=== PATIENT | male | born 1980 | race Hispanic/Latino ===

== ENCOUNTER 2017-12-22 11:58 | Emergency (ER) | payer OTHER ==
[2017-12-22 12:17] VITALS: BP 142/91; PULSE 87; RESP 18; TEMP 98.6; O2SAT 98
[2017-12-22] MEDS ORDERED: Lidocaine 5% Patch TD STA (12:43)
--- NOTE | 2017-12-22 12:51 | ED PDOC ---
Arrival/HPI - General Chief Complaint: Back Pain Time Seen by Provider: 12/22/17 12:12 Historian: Patient - History of Present Illness Narrative History of Present Illness (Text): 12/22/17 12:30 Zenon Leggett is a 37 year old male, whose past medical history includes kidney stones, who presents to the emergency department complaining of lower back pain that radiates down to bilateral hips for the past 2 weeks. Patient states that initially he experienced numbness which gradually worsened to having pain with getting out of bed this morning. Patient says that symptoms worsen with movement. Patient states that he has never had these symptoms before and they do not feel like kidney stones. Patient also indicates some ankle pain. No leg swelling or calf pain. Patient denies any abdominal pain, urinary symptoms, hematuria, or any other complaints at this time. PMD: None Time/Duration: < month (2 weeks) Symptom Onset: Gradual Symptom Course: Unchanged Activities at Onset: Light Context: Home Past Medical History - Provider Review Nursing Documentation Reviewed: Yes - Infectious Disease Hx of Infectious Diseases: None - Cardiac Hx Cardiac Disorders: No - Pulmonary Hx Respiratory Disorders: No - Neurological Hx Neurological Disorder: No - HEENT Hx HEENT Disorder: No - Renal Hx Renal Disorder: Yes Hx Kidney Stones: Yes - Endocrine/Metabolic Hx Endocrine Disorders: No - Hematological/Oncological Hx Blood Disorders: No - Integumentary Hx Dermatological Disorder: No - Musculoskeletal/Rheumatological Hx Musculoskeletal Disorders: No - Gastrointestinal Hx Gastrointestinal Disorders: No - Genitourinary/Gynecological Hx Genitourinary Disorders: No - Psychiatric Hx Psychophysiologic Disorder: No Hx Substance Use: No - Surgical History Other/Comment: kidney lithotripsy b/l - Anesthesia Hx Anesthesia: Yes Hx Anesthesia Reactions: No Family/Social History - Physician Review Nursing Documentation Reviewed: Yes Family/Social History: No Known Family HX Smoking Status: Former Smoker Hx Alcohol Use: No Hx Substance Use: No Allergies/Home Meds Allergies/Adverse Reactions: Allergies shrimp Allergy (Verified 12/22/17 12:28) ANAPHYLAXIS Review of Systems - Physician Review All systems were reviewed & negative as marked: Yes - Review of Systems Constitutional: absent: Fevers, Night Sweats Eyes: absent: Vision Changes ENT: absent: Hearing Changes Respiratory: absent: SOB, Cough Cardiovascular: absent: Chest Pain Gastrointestinal: absent: Abdominal Pain Genitourinary Male: absent: Dysuria, Frequency Musculoskeletal: Back Pain (lower back pain that radiates down to bilateral hips ). absent: Arthralgias Skin: absent: Rash, Pruritis Neurological: absent: Headache, Dizziness Endocrine: absent: Diaphoresis Hemo/Lymphatic: absent: Adenopathy Psychiatric: absent: Anxiety, Depression Physical Exam Vital Signs Reviewed: Yes Vital Signs Temp Pulse Resp BP Pulse Ox 12/22/17 12:16 98.6 F 87 18 142/91 H 98 Temperature: Afebrile Blood Pressure: Hypertensive Pulse: Regular Respiratory Rate: Normal Appearance: Positive for: Well-Appearing, Non-Toxic, Comfortable Pain Distress: None Mental Status: Positive for: Alert and Oriented X 3 - Systems Exam Head: Present: Atraumatic, Normocephalic Pupils: Present: PERRL Extroacular Muscles: Present: EOMI Conjunctiva: Present: Normal Mouth: Present: Moist Mucous Membranes Neck: Present: Normal Range of Motion Respiratory/Chest: Present: Clear to Auscultation, Good Air Exchange. No: Respiratory Distress, Accessory Muscle Use Cardiovascular: Present: Regular Rate and Rhythm, Normal S1, S2. No: Murmurs Abdomen: Present: Normal Bowel Sounds. No: Tenderness, Distention, Peritoneal Signs Back: Present: Paraspinal Tenderness (paraspinal tenderness to L3 and L4), Other (pain to right side sciatic nerve in buttocks; exacerbated by movement and leg extension ) Upper Extremity: Present: Normal Inspection. No: Cyanosis, Edema Lower Extremity: No: Tenderness (no calf tenderness), Swelling (no leg swelling) Neurological: Present: GCS=15, CN II-XII Intact, Speech Normal Skin: Present: Warm, Dry, Normal Color. No: Rashes Psychiatric: Present: Alert, Oriented x 3, Normal Insight, Normal Concentration Medical Decision Making ED Course and Treatment: 12/22/17 12:52 Impression: 37 year old male complaining of lower back pain that radiates down to bilateral hips for the past 2 weeks. Differential Diagnosis included but are not limited to: Sciatica vs. Muscle strain Plan: -- Tylenol, Lidoderm, and Toradol -- Reassess and disposition Progress Notes: Patient was instructed on some stretching exercises. He was advised to take medications as prescribed. He was told to return to the ED if he develops any urinary symptoms, inability to walk, weakness or any other concern. Clinically this does not appear like kidney stones. He will be advised to follow up with Dr. 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 - Medication Orders Current Medication Orders: Discontinued Medications Acetaminophen (Tylenol 325mg Tab) 975 mg PO STAT STA Stop: 12/22/17 12:44 Last Admin: 12/22/17 13:38 Dose: 975 mg MAR Pain/Vitals Document 12/22/17 13:38 SE (Rec: 12/22/17 13:38 SE [id number]) Pain Reassessment Is This A Pain ReAssessment? No Sleep Is patient sleeping during reassessment? No Presence of Pain Presence of Pain Yes Pain Scale Used Pain Scale Used Numeric Location Upper or Lower Lower Pain Location Body Site Back Ketorolac Tromethamine (Toradol) 60 mg IM STAT STA Stop: 12/22/17 12:44 Last Admin: 12/22/17 12:52 Dose: 60 mg MAR Pain Assessment Document 12/22/17 12:52 SE (Rec: 12/22/17 12:52 SE [id number]) Pain Reassessment Is this a pain reassessment? No Sleep Is patient sleeping during reassessment? No Presence of Pain Presence of Pain Yes Pain Scale Used Pain Scale Used Numeric IM Administration Charges Document 12/22/17 12:52 SE (Rec: 12/22/17 12:52 SE [id number]) Injection Site MAR Injection Site Left Gluteus Ramses Charges for Administration # of IM Administrations 1 Lidocaine (Lidoderm) 1 ea TD STAT STA Stop: 12/22/17 12:44 Last Admin: 12/22/17 12:51 Dose: 1 ea MAR Transdermal Patch Site Document 12/22/17 12:51 SE (Rec: 12/22/17 12:52 SE [id number]) Transdermal Patch Site Transdermal Patch Site Left Lower Back - Scribe Statement The provider has reviewed the documentation as recorded by the Evon Hernandez Provider Scribe Attestation: All medical record entries made by the Scribe were at my direction and personally dictated by me. I have reviewed the chart and agree that the record accurately reflects my personal performance of the history, physical exam, medical decision making, and the department course for this patient. I have also personally directed, reviewed, and agree with the discharge instructions and disposition. Disposition/Present on Arrival - Present on Arrival Any Indicators Present on Arrival: No History of DVT/PE: No History of Uncontrolled Diabetes: No Urinary Catheter: No History of Decub. Ulcer: No History Surgical Site Infection Following: None - Disposition Have Diagnosis and Disposition been Completed?: Yes Diagnosis: Back pain Disposition: HOME/ ROUTINE Disposition Time: 13:55 Patient Plan: Discharge Condition: IMPROVED Discharge Instructions (ExitCare): Acute Low Back Pain (ED) Additional Instructions: Mr Leggett, thank you for letting us take care of you today. Your provider was Dr. Chambers. You were treated for Back Pain. The emergency medical care you received today was directed at your acute symptoms. If you were prescribed any medication, please fill it and take as directed. It may take several days for your symptoms to resolve. Return to the Emergency Department if your symptoms worsen, do not improve, or if you have any other problems. Please contact your doctor or call one of the physicians/clinics you have been referred to that are listed on the Patient Visit Information form that is included in your discharge packet. Bring any paperwork you were given at discharge with you along with any medications you are taking to your follow up visit. Our treatment cannot replace ongoing medical care by a primary care provider (PCP) outside of the emergency department. Thank you for allowing the [facility] team to be part of your care today. If you had an X-Ray or CT scan: A Radiologist will review the ED reading if any change in treatment is needed we will contact you. If you had a blood, urine, or wound culture: It will take several days for the results, if any change in treatment is needed we will contact you. If you had an STI test: It will take 48 hours for the results. Please call after 1 week if you have not heard back. Prescriptions: Cyclobenzaprine [Cyclobenzaprine HCl] 10 mg PO Q8 PRN #20 tab PRN Reason: Muscle Spasm Ibuprofen [Motrin] 600 mg PO Q6 PRN #30 tab PRN Reason: Pain, Moderate (4-7) Referrals: Master Mancera MD [Staff Provider] - Follow up with primary Forms: [employer] (Kazakh), WORK NOTE
== END 2017-12-22 13:55 | disposition home or self-care (01) ==
LOC: ED 11:58
DX: M54.5 Low back pain (principal)
CPT/HCPCS: 96372; 99283; J1885

== ENCOUNTER 2018-01-10 22:22 | Emergency (ER) | payer OTHER ==
[2018-01-10 22:30] VITALS: O2SAT 99
--- NOTE | 2018-01-10 22:53 | ED PDOC ---
Arrival/HPI - General Historian: Patient - General Chief Complaint: Lower Extremity Problem/Injury Time Seen by Provider: 01/10/18 22:35 - History of Present Illness Narrative History of Present Illness (Text): 01/10/18 22:43 37yo male with no PMhx who present with complaint of b/l knee and ankle pain x one week. States the ankle pain has been ongoing for a while now, but the knee pain started a week ago. States pain is with ambulation or when climbing stairs. he states he ws taking Ibuprofen with relieve. He denies fever, chills, calf pain, SOB, diaphoresis, chest pain, recent travel, chest pain, trauma, any other complaint. (Swapnil Perez A) Past Medical History - Provider Review Nursing Documentation Reviewed: Yes - Infectious Disease Hx of Infectious Diseases: None - Cardiac Hx Cardiac Disorders: No - Pulmonary Hx Respiratory Disorders: No - Neurological Hx Neurological Disorder: No - HEENT Hx HEENT Disorder: No - Renal Hx Renal Disorder: Yes Hx Kidney Stones: Yes - Endocrine/Metabolic Hx Endocrine Disorders: No - Hematological/Oncological Hx Blood Disorders: No - Integumentary Hx Dermatological Disorder: No - Musculoskeletal/Rheumatological Hx Musculoskeletal Disorders: No - Gastrointestinal Hx Gastrointestinal Disorders: No - Genitourinary/Gynecological Hx Genitourinary Disorders: No - Psychiatric Hx Psychophysiologic Disorder: No Hx Substance Use: Yes - Surgical History Other/Comment: kidney lithotripsy b/l - Anesthesia Hx Anesthesia: Yes Hx Anesthesia Reactions: No Family/Social History - Physician Review Nursing Documentation Reviewed: Yes Family/Social History: Unknown Family HX Smoking Status: Former Smoker Hx Alcohol Use: Yes Frequency of alcohol use: Socially Hx Substance Use: Yes Substance used: Marijuana Allergies/Home Meds Allergies/Adverse Reactions: Allergies shrimp Allergy (Verified 12/22/17 12:28) ANAPHYLAXIS Review of Systems - Physician Review All systems were reviewed & negative as marked: Yes - Review of Systems Constitutional: Normal Eyes: Normal ENT: Normal Respiratory: Normal Cardiovascular: Normal Gastrointestinal: Normal Genitourinary Male: Normal Musculoskeletal: Arthralgias (B/L ankle/knee pain) Skin: Normal Neurological: Normal Endocrine: Normal Hemo/Lymphatic: Normal Psychiatric: Normal Physical Exam Vital Signs Reviewed: Yes Temperature: Afebrile Blood Pressure: Normal Pulse: Regular Respiratory Rate: Normal Appearance: Positive for: Well-Appearing, Non-Toxic, Comfortable Pain Distress: None Mental Status: Positive for: Alert and Oriented X 3 - Systems Exam Head: Present: Atraumatic, Normocephalic Pupils: Present: PERRL Extroacular Muscles: Present: EOMI Conjunctiva: Present: Normal Mouth: Present: Moist Mucous Membranes Neck: Present: Normal Range of Motion Respiratory/Chest: Present: Clear to Auscultation, Good Air Exchange. No: Respiratory Distress, Accessory Muscle Use Cardiovascular: Present: Regular Rate and Rhythm, Normal S1, S2. No: Murmurs Abdomen: Present: Normal Bowel Sounds. No: Tenderness, Distention, Peritoneal Signs Back: Present: Normal Inspection Upper Extremity: Present: Normal Inspection. No: Cyanosis, Edema Lower Extremity: Present: Edema (1+ edema of b/l ankle/foot), NORMAL PULSES, Normal ROM, Neurovascularly Intact. No: CALF TENDERNESS, Lynn's Sign, Tenderness, Erythema, Temperature Abnormalties Neurological: Present: GCS=15, CN II-XII Intact, Speech Normal Skin: Present: Warm, Dry, Normal Color. No: Rashes Psychiatric: Present: Alert, Oriented x 3, Normal Insight, Normal Concentration Vital Signs Temp Pulse Resp BP Pulse Ox 01/11/18 00:25 97.9 F 77 16 123/87 99 01/10/18 23:51 88 122/86 01/10/18 22:25 98.7 F 104 H 17 148/93 H 99 Medical Decision Making ED Course and Treatment: 01/11/18 00:07 Preliminary US - Negative for DVT B/L knee/ankle xray - Negative for for acute fracture Result was DW the pt. He was advised to use compression socking and knee legs elevated for the minimal edema he has. Referred to ortho. Rx of Naprosyn given for pain. (Ana,Happiness A) - RAD Interpretation Radiology Orders: 01/10/18 22:41 ANKLE COMPLETE 3 VIEWS BI [RAD] Stat 01/10/18 22:42 KNEE W PATELLA BILAT 3 VIEW [RAD] Stat DUPLEX LOWER EXTRM VEIN BILAT [US] Stat - Medication Orders Current Medication Orders: Discontinued Medications Ketorolac Tromethamine (Toradol) 60 mg IM STAT STA Stop: 01/10/18 22:44 Last Admin: 01/10/18 22:49 Dose: 60 mg MAR Pain Assessment Document 02/17/18 22:49 MS (Rec: 01/10/18 22:50 MS [facility] [id number]) Pain Reassessment Is this a pain reassessment? No Sleep Is patient sleeping during reassessment? No Presence of Pain Presence of Pain Yes Pain Scale Used Pain Scale Used Numeric Location Left, Right or Bilateral Bilateral Pain Location Body Site Ankle Description Description Constant Intensity of Pain at present 8 Pain Behavior Guarding IM Administration Charges Document 01/10/18 22:49 MS (Rec: 01/10/18 22:50 MS [id number] Injection Site MAR Injection Site Right Vastus Lateralis Charges for Administration # of IM Administrations 1 Disposition/Present on Arrival - Present on Arrival Any Indicators Present on Arrival: No History of DVT/PE: No History of Uncontrolled Diabetes: No Urinary Catheter: No History of Decub. Ulcer: No History Surgical Site Infection Following: None - Disposition Have Diagnosis and Disposition been Completed?: Yes Disposition Time: 00:10 Patient Plan: Discharge - Disposition Diagnosis: Knee pain, Ankle pain, Edema Disposition: HOME/ ROUTINE Condition: STABLE Discharge Instructions (ExitCare): Dependent Edema (DC), Knee Pain (DC) Additional Instructions: Follow up with orthopedist Keep leg elevated Follow up with your doctor/Orthopedist Return to ED for any new or worsening symptoms Prescriptions: Naproxen [Naprosyn] 500 mg PO BID #20 tab Referrals: Mateusz Hernandez, [Primary Care Provider] - Follow up with primary Colby Schilling DO [Staff Provider] - Follow up with primary Forms: [employer] (Pashto)
[2018-01-11 00:26] VITALS: BP 123/87; PULSE 77; RESP 16; TEMP 97.9
--- NOTE | 2018-01-11 09:27 | RAD ---
PROCEDURE: Bilateral ankles dated 01/10/2018. HISTORY: Leg pain. COMPARISON: No prior study available for comparison. TECHNIQUE: Standard views of the right and left ankles performed. FINDINGS: No evidence of acute displaced fracture nor dislocation. The osseous structures appear intact. Talar dome intact. Ankle mortise maintained. No significant degenerative osteoarthritis. Soft tissues appear grossly unremarkable. IMPRESSION: No evidence of acute displaced fracture nor dislocation.
--- NOTE | 2018-01-11 09:59 | RAD ---
PROCEDURE: Bilateral Knee Radiographs. HISTORY: Knee pain COMPARISON: None. FINDINGS: BONES: Right Knee: Normal. No fracture. Left Knee: Normal. No fracture. JOINTS: Right Knee: Normal. No osteoarthritis. Left knee: Normal. No osteoarthritis. SOFT TISSUES: Right Knee: Normal. Left Knee: Normal. JOINT EFFUSION: Right Knee: None. Left Knee: None. OTHER FINDINGS: None. IMPRESSION: No evidence of acute displaced fracture nor dislocation.
--- NOTE | 2018-01-12 09:53 | US ---
HISTORY: Leg pain and swelling. Evaluate for DVT PHYSICIAN(S): Shay Win MD. TECHNIQUE: Duplex sonography and color-flow Doppler with graded compression were used to evaluate the deep venous systems of both lower extremities. FINDINGS: The visualized deep venous systems of both lower extremities are sonographically normal and compressible. Normal wave forms and augmentation are seen. There is no sonographic evidence for deep venous thrombosis in the visualized segments of both lower extremities. IMPRESSION: No sonographic evidence for deep venous thrombosis in the visualized segments of both lower extremities.
== END 2018-01-11 00:26 | disposition home or self-care (01) ==
LOC: ED 22:22
DX: M25.561 Pain in right knee (principal); M25.562 Pain in left knee; M25.572 Pain in left ankle and joints of left foot; M25.571 Pain in right ankle and joints of right foot; R60.9 Edema, unspecified; Z87.891 Personal history of nicotine dependence
CPT/HCPCS: 73562; 73610; 93970; 96372; 99284; J1885